=== PATIENT | male | born 1965 | race Hispanic/Latino ===

== ENCOUNTER 2023-11-08 23:28 | Emergency (ER) | payer BC, OTHER ==
[~2023-11-08] VITALS: Ht 177.8 cm; Wt 115.7 kg
[2023-11-08] MEDS: MORPHINE 2 MG SYG IVP ONE (23:45)
[2023-11-08] MEDS: ASPIRIN 325MG TAB PO ONE (23:45)
[2023-11-08] MEDS: NITROGLYCERIN 1GM OINT 1 INCH/1GM TD ONE (23:45)
[2023-11-08] MEDS: METOPROLOL TARTRATE 1 MG/ML 5ML VIAL IV ONE (23:47)
[2023-11-08 23:50] LABS: BASOPHILS # (AUTO) 0.06 K/uL (0.00-0.20); BASOPHILS % (AUTO) 0.5 % (0.0-5.0); EOSINOPHILS # (AUTO) 0.21 K/uL (0.00-0.70); EOSINOPHILS % (AUTO) 1.7 % (0.0-8.0); HEMATOCRIT 44.2 % (42-54); IMMATURE GRANULOCYTE ABSOLUTE 0.04 K/uL (0-1); LYMPHOCYTES # (AUTO) 2.1 K/uL (1.0-4.8); LYMPHOCYTES % (AUTO) 16.5 % (21.0-51.0); MEAN CORPUSCULAR HGB CONC 34.8 g/dL (32.0-36.0); MEAN CORPUSCULAR VOLUME 80.4 fL (79-99); MONOCYTES # (AUTO) 0.8 K/uL (0.1-1.0); NEUTROPHILS # (AUTO) 9.5 K/uL (1.8-7.7); PLATELET COUNT (AUTO) 240 K/uL (130-400); RED CELL DISTRIBUTION WIDTH 12.8 % (11.0-15.5); WHITE BLOOD COUNT (AUTO) 12.6 K/uL (4.8-10.8)
[2023-11-08 23:59] LABS: CREATININE 1.2 mg/dL (0.5-1.5); POTASSIUM 4.3 mmol/L (3.5-5.1)
[2023-11-09 00:07] LABS: INR 1.11 (0.85-1.15); PROTHROMBIN TIME 12.8 SEC (9.6-11.6)
[2023-11-09 00:08] LABS: ALBUMIN 3.7 g/dL (3.5-5.0); BILIRUBIN,TOTAL 0.6 mg/dL (0.2-1.0); MAGNESIUM 1.7 mg/dL (1.80-2.40)
[2023-11-09 00:09] LABS: B-TYPE NATRIURETIC PEPTIDE 11 pg/mL (0-100)
[2023-11-09] MEDS: LIDOCAINE HCL 2% VISCOUS 15 ML UDCUP PO ONE (00:20)
[2023-11-09] MEDS: MAG/ALUM/SIMETH 30 ML UDCUP PO ONE (00:20)
[2023-11-09] MEDS: DICYCLOMINE HCL 10 MG/5 ML ML PO SCH (00:20)
[2023-11-09 01:55] VITALS: BP 128/77; PULSE 83; RESP 19; O2SAT 98
[2023-11-09] MEDS ORDERED: MORPHINE 2 MG SYG IVP PRN (02:30)
[2023-11-09] MEDS ORDERED: MAG/ALUM/SIMETH 30 ML UDCUP PO PRN (02:30)
[2023-11-09] MEDS ORDERED: ONDANSETRON 4MG INJ IV PRN (02:30)
[2023-11-09] MEDS ORDERED: DEXTROSE 50%-WATER 50 ML DISP.SYRIN IV PRN (02:30)
[2023-11-09] MEDS ORDERED: POTASSIUM CHLORIDE 20MEQ/100ML 100 ML IV PRN (02:30)
[2023-11-09] MEDS ORDERED: MAGNESIUM 2GM PREMIX 50ML 50 ML IV PRN (02:30)
[2023-11-09] MEDS ORDERED: 0.9%NACL 1000ML 1,000 ML IV SCH (02:30)
[2023-11-09] MEDS ORDERED: NITROGLYCERIN 1GM OINT 1 INCH/1GM TD SCH (02:30)
[2023-11-09] MEDS ORDERED: GLUCAGON 1MG KIT 1 MG ML IM PRN (02:30)
[2023-11-09] MEDS ORDERED: LEVOFLOXACIN 500 MG/D5W 100 ML 100 ML IV SCH (02:30)
[2023-11-09] MEDS ORDERED: ACETAMINOPHEN 325 MG TAB PO PRN ×2 (02:30)
[2023-11-09] MEDS ORDERED: INSULIN HUMULIN R 100 UNIT/ML 3ML SQ SCH (06:00)
[2023-11-09] MEDS ORDERED: FAMOTIDINE 20MG VIAL IV SCH (09:00)
[2023-11-09] MEDS ORDERED: ASPIRIN 81 MG EC TAB PO SCH (09:00)
== END 2023-11-09 02:48 | disposition left against medical advice (07) ==
LOC: EDH 23:28
DX: R07.89 Other chest pain (principal); E11.9 Type 2 diabetes mellitus without complications; Z90.49 Acquired absence of other specified parts of digestive tract
CPT/HCPCS: 99284; 96374; 71045; 96375; 83735; 84484 ×2; 80053; 83880; 85025; 85610; 36415 ×2; 93005; J3490; J2270